=== PATIENT | male | born 1970 | race Hispanic/Latino ===

== ENCOUNTER 2017-10-07 20:16 | Emergency (ER) | payer MEDICAID, OTHER ==
[2017-10-07 20:25] VITALS: O2SAT 96
[2017-10-07] MEDS ORDERED: guaiFENesin 100 mg/5 ml Syrup UD PO STA (21:06)
--- NOTE | 2017-10-07 21:10 | C.PDOC ---
Time Seen by Provider: 10/07/17 20:41 Chief Complaint (Nursing): GI Problem Past Medical History Vital Signs: Last Vital Signs Temp 98.1 F 10/07/17 20:19 Pulse 96 H 10/07/17 20:19 Resp 20 10/07/17 20:19 BP 145/98 H 10/07/17 20:19 Pulse Ox 96 10/07/17 20:19 - Medical History PMH: Depression, Diabetes, HTN, Hypercholesterolemia Denies: Hepatitis, HIV, Chronic Kidney Disease, Seizures, Sexually Transmitted Disease Family History: States: Diabetes - Social History Hx Tobacco Use: Yes Hx Alcohol Use: Yes Hx Substance Use: No - Immunization History Hx Tetanus Toxoid Vaccination: No Hx Influenza Vaccination: No Hx Pneumococcal Vaccination: No ED Course And Treatment O2 Sat by Pulse Oximetry: 96 Progress Note: christoph flynn Reevaluation Time: 21:09 Reassessment Condition: Improved Medical Decision Making Medical Decision Making: mild viral syndrome of 1 week duration, too late for Tamiflu and mild findings- pt more interested in work note. Disposition Doctor Will See Patient In The: Office Counseled Patient/Family Regarding: Studies Performed, Diagnosis - Disposition Disposition: HOME/ ROUTINE Disposition Time: 21:10 Condition: GOOD - Clinical Impression Clinical Impression: Viral syndrome
--- NOTE | 2017-10-07 21:15 | C.PDOC ---
History Of Present Illness 47 y/o male presents to ED with complaints of dry cough, bodyaches, and myalgias that began last week. 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 Pt states he wants to take off a few days from work. He states he has not taken over the counter medication because he is concerned it will effect his diabetes. Pt has hx of substance abuse, alcoholism, and overdoses. Denies current substance abuse. Time Seen by Provider: 10/07/17 20:41 Chief Complaint (Nursing): GI Problem History Per: Patient History/Exam Limitations: no limitations Onset/Duration Of Symptoms: Days (7) Current Symptoms Are (Timing): Still Present Recent travel outside of the [place]: No Past Medical History Reviewed: Historical Data, Nursing Documentation, Vital Signs Vital Signs: Last Vital Signs Temp 98.2 F 10/07/17 21:20 Pulse 73 10/07/17 21:20 Resp 18 10/07/17 21:20 BP 146/85 10/07/17 21:20 Pulse Ox 96 10/07/17 21:20 - Medical History PMH: Depression, Diabetes, HTN, Hypercholesterolemia Surgical History: No Surg Hx Family History: States: Diabetes - Social History Hx Tobacco Use: Yes Hx Alcohol Use: Yes Hx Substance Use: No - Immunization History Hx Tetanus Toxoid Vaccination: No Hx Influenza Vaccination: No Hx Pneumococcal Vaccination: No Review Of Systems Constitutional: Negative for: Fever Cardiovascular: Negative for: Chest Pain Respiratory: Positive for: Cough (dry). Negative for: Shortness of Breath Gastrointestinal: Negative for: Abdominal Pain, Constipation Musculoskeletal: Positive for: Other (bodyaches; myalgias) Neurological: Negative for: Weakness, Numbness Physical Exam - Physical Exam Appears: Well, Non-toxic, No Acute Distress Skin: Normal Color, Warm, Dry Head: Atraumatic, Normacephalic Eye(s): bilateral: Normal Inspection Oral Mucosa: Moist Neck: Supple Chest: Symmetrical, No Tenderness Cardiovascular: Rhythm Regular Respiratory: Normal Breath Sounds, No Decreased Breath Sounds, No Rales, No Rhonchi, No Wheezing Gastrointestinal/Abdominal: Soft, No Tenderness, No Distention, No Guarding, No Rebound Extremity: Normal ROM, No Tenderness, No Swelling Extremity: Bilateral: Normal Color And Temperature, Normal ROM Neurological/Psych: Oriented x3, Normal Speech, Normal Cognition, Other (no focal deficits) ED Course And Treatment O2 Sat by Pulse Oximetry: 96 (RA) Pulse Ox Interpretation: Normal Medical Decision Making Medical Decision Making: Administered Motrin and Robitussin. Disposition - Disposition Referrals: Karolina Cotter MD [Non-Staff] - Disposition: HOME/ ROUTINE Disposition Time: 21:10 Condition: GOOD Additional Instructions: continue dayquil and Nyquil as directed Rest and plenty of fluids. Instructions: Viral Syndrome (ED) Forms: [facility] (Yoruba), Work Excuse - Clinical Impression Clinical Impression: Viral syndrome - Scribe Statement The provider has reviewed the documentation as recorded by the Scribe Guy Urbina All medical record entries made by the Scribe were at my direction and personally dictated by me. I have reviewed the chart and agree that the record accurately reflects my personal performance of the history, physical exam, medical decision making, and the department course for this patient. I have also personally directed, reviewed, and agree with the discharge instructions and disposition.
[2017-10-07] MEDS ORDERED: guaiFENesin 100 mg/5 ml Syrup UD ONE (21:18)
[2017-10-07 21:21] VITALS: BP 146/85; PULSE 73; RESP 18; TEMP 98.2
== END 2017-10-07 21:20 | disposition home or self-care (01) ==
LOC: C.ER 20:16
DX: R05 Cough (principal); B34.9 Viral infection, unspecified; E11.9 Type 2 diabetes mellitus without complications; E78.00 Pure hypercholesterolemia, unspecified; I10 Essential (primary) hypertension; Z72.0 Tobacco use

== ENCOUNTER 2017-11-06 22:35 | Emergency (ER) | payer SELFPAY ==
[2017-11-06 22:47] VITALS: BP 160/103; PULSE 98; RESP 20; TEMP 97.8; O2SAT 97
--- NOTE | 2017-11-07 00:29 | C.PDOC ---
History Of Present Illness 47 year old male presents to the ER with a complaint of right elbow pain for the past 2 days. Patient reports he does a lot of heavy lifting at work. Denies weakness, numbness, or injury to the area. Time Seen by Provider: 11/06/17 23:05 Chief Complaint (Nursing): Upper Extremity Problem/Injury History Per: Patient History/Exam Limitations: no limitations Onset/Duration Of Symptoms: Days Current Symptoms Are (Timing): Still Present Exacerbating Factor(s): Nothing Recent travel outside of the [place]: No Past Medical History Reviewed: Historical Data, Nursing Documentation, Vital Signs Vital Signs: Last Vital Signs Temp 97.8 F 11/06/17 22:42 Pulse 98 H 11/06/17 22:42 Resp 20 11/06/17 22:42 BP 160/103 H 11/06/17 22:42 Pulse Ox 97 11/07/17 00:30 - Medical History PMH: Depression, Diabetes, HTN, Hypercholesterolemia Family History: States: Diabetes - Social History Hx Tobacco Use: Yes Hx Alcohol Use: Yes Hx Substance Use: No - Immunization History Hx Tetanus Toxoid Vaccination: No Hx Influenza Vaccination: No Hx Pneumococcal Vaccination: No Review Of Systems Musculoskeletal: Positive for: Arm Pain Neurological: Negative for: Weakness, Numbness Physical Exam - Physical Exam Appears: Non-toxic, No Acute Distress Skin: Normal Color, Warm, Dry Head: Atraumatic, Normacephalic Eye(s): bilateral: Normal Inspection Extremity: Normal ROM (x4), No Tenderness, No Deformity, No Swelling Pulses: Left Radial: Normal, Right Radial: Normal Neurological/Psych: Oriented x3, Normal Speech, Normal Motor, Normal Sensation ED Course And Treatment O2 Sat by Pulse Oximetry: 97 (Room air) Pulse Ox Interpretation: Normal - Other Rad Right elbow x-ray X-Ray: Interpreted by Me, Viewed By Me Interpretation: No acute fractures or dislocations. Progress Note: Right elbow x-ray ordered, results were negative. Motrin administered for pain. Patient is resting comfortably in the ER with no pain and in no acute distress. Will discharge home with instructions to follow up with PMD or return if symptoms worsen. 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 - Scribe Statement The provider has reviewed the documentation as recorded by the Scribe Christian Lopez All medical record entries made by the Fransiscoibregina were at my direction and personally dictated by me. I have reviewed the chart and agree that the record accurately reflects my personal performance of the history, physical exam, medical decision making, and the department course for this patient. I have also personally directed, reviewed, and agree with the discharge instructions and disposition.
--- NOTE | 2017-11-07 07:38 | RAD ---
PROCEDURE: Radiographs of the right elbow. HISTORY: elbow pain COMPARISON: No prior. FINDINGS: BONES: No acute fracture or destructive bony lesion identified. JOINTS: Normal. No osteoarthritis. SOFT TISSUES: Normal. JOINT EFFUSION: None. OTHER FINDINGS: None. IMPRESSION: Unremarkable radiographs of the right elbow.
== END 2017-11-07 00:40 | disposition home or self-care (01) ==
LOC: C.ER 22:35
DX: M25.521 Pain in right elbow (principal); E11.9 Type 2 diabetes mellitus without complications; E78.00 Pure hypercholesterolemia, unspecified; I10 Essential (primary) hypertension; Z72.0 Tobacco use